=== PATIENT | female | born 1985 | race African-American/Black ===

== ENCOUNTER 2024-09-05 12:44 | Inpatient (IN) | payer OTHER ==
[~2024-09-05] VITALS: Ht 160 cm; Wt 69.4 kg
[2024-09-05] MEDS ORDERED: MORPHINE SULFATE 4 MG/ML INJ (FOR IV/IM USE) IV STA (13:13)
[2024-09-05] MEDS ORDERED: ONDANSETRON HCL 4MG/2ML INJ IV STA (13:13)
[2024-09-05] MEDS: SODIUM CHLORIDE 0.9% 1,000 ML IV ONE (15:15)
[2024-09-05 15:22] LABS: HEMATOCRIT. 41.2 % (36.0-48.0); HEMOGLOBIN. 13.6 g/dL (12.0-16.0); MEAN CORPUSCULAR HEMOGLOBIN 28.6 pg (28.0-32.0); MEAN CORPUSCULAR VOLUME 86.5 fL (81.0-99.0); MEAN PLATELET VOLUME 7.8 fl (7.4-10.4); PLATELET 285 x1000/uL (130-400); RED BLOOD CELL COUNT 4.76 mill/uL (4.2-5.4); WHITE BLOOD COUNT 14.4 x1000/uL (4.5-11.0)
[2024-09-05 15:24] LABS: DIFFERENTIAL COMMENT 1
[2024-09-05 15:30] LABS: CHLORIDE 103 mEq/L (98-107); POTASSIUM 3.9 mEq/L (3.5-5.1); SODIUM 137 mEq/L (136-145)
[2024-09-05 15:31] LABS: CARBON DIOXIDE 23 mEq/L (21-32)
[2024-09-05 15:32] LABS: CALCIUM 9.5 mg/dL (8.7-10.4)
[2024-09-05] MEDS: ONDANSETRON HCL 4MG/2ML INJ IV SCH (15:32)
[2024-09-05 15:36] LABS: CREATININE 0.9 mg/dL (0.6-1.0); GLUCOSE 123 mg/dL (70-105)
[2024-09-05] MEDS: MORPHINE SULFATE 4 MG/ML INJ (FOR IV/IM USE) IV SCH (15:36)
[2024-09-05 15:37] LABS: TROPONIN I HIGH SENSITIVITY 5 ng/L (3.0-34); UREA NITROGEN BLOOD 10 mg/dL (9-23)
[2024-09-05 15:53] LABS: ANISOCYTOSIS 1+; PLATELET ESTIMATE NORMAL
[2024-09-05 15:54] LABS: HCG SCREEN NEGATIVE
[2024-09-05] MEDS: MAGNESIUM 2 G PREMIX 50 ML IV ONE (17:29)
[2024-09-05] MEDS: ONDANSETRON HCL 4MG/2ML INJ IV ONE (17:43)
[2024-09-05] MEDS ORDERED: ACETAMINOPHEN 325MG TABLET PO PRN (18:45)
[2024-09-05] MEDS: SODIUM CHLORIDE 0.9% 1,000 ML IV SCH (18:45)
[2024-09-05] MEDS ORDERED: ZOLPIDEM TARTRATE 5MG TABLET PO PRN (18:45)
[2024-09-05] MEDS ORDERED: CLONIDINE 0.1MG TABLET PO PRN (18:45)
[2024-09-05 20:00] VITALS: BP 149/94; PULSE 85; RESP 19; TEMP 36.7; O2SAT 100
[2024-09-05] MEDS: ENOXAPARIN 40MG/0.4ML SYR SUBCUT SCH (21:00)
[2024-09-05] MEDS: HYDROCODONE/ACETAMINOPHEN 5/325MG TABLET PO PRN (21:07)
[2024-09-05] MEDS: ONDANSETRON HCL 4MG/2ML INJ IV PRN (21:11)
[2024-09-05 22:29] VITALS: BP 149/94; PULSE 85; RESP 18; TEMP 36.8
[2024-09-05 23:26] LABS: CLARITY URINE CLOUDY (CLEAR); COLOR URINE ORANGE (YELLOW); GLUCOSE URINE NEGATIVE (NEGATIVE); KETONES URINE 2+ (NEGATIVE); LEUKOCYTE ESTERASE URINE NEGATIVE (NEGATIVE); NITRITE URINE NEGATIVE (NEGATIVE); OCCULT BLOOD URINE 3+ (NEGATIVE); PH URINE 5.5 (4.5-8.0); PROTEIN URINE 2+ (NEGATIVE); SPECIFIC GRAVITY URINE 1.044 (1.005-1.030); UROBILINOGEN URINE 0.2 E.U./dL (0.2-1.0)
[2024-09-05] MEDS ORDERED: IOHEXOL-350 100 ML BOTTLE ONE (23:42)
[2024-09-05 23:48] LABS: SQUAMOUS EPITHELIAL CELL URINE 1+ /lpf (RARE/1+)
[2024-09-05 23:49] LABS: BACTERIA URINE NONE SEEN; RBC URINE 25-50 /hpf (0-2); WBC URINE 0-2 /hpf (0-2)
[2024-09-05 23:58] LABS: *AMPHETAMINES SCREEN URINE NEGATIVE (NEGATIVE)
[2024-09-05 23:59] LABS: *BARBITURATES SCREEN URINE NEGATIVE (NEGATIVE); *BENZODIAZEPINES SCREEN URINE NEGATIVE (NEGATIVE); *COCAINE SCREEN URINE NEGATIVE (NEGATIVE); CANNABINOID URINE SCREEN NEGATIVE (NEGATIVE); ECSTASY MDMA SCREEN URINE NEGATIVE (NEGATIVE); METHADONE URINE SCREEN NEGATIVE (NEGATIVE); OPIATES URINE SCREEN PRESUMPTIVE POSITIVE (NEGATIVE); PHENCYCLIDINE URINE SCREEN NEGATIVE (NEGATIVE)
[2024-09-06] VITALS: BP 148/99; PULSE 103; RESP 18; TEMP 36.6; O2SAT 100
[2024-09-06] MEDS ORDERED: MAGNESIUM/ALUMINUM HYDROXIDE/SIMETHICONE 30ML UDC PO PRN (01:00)
[2024-09-06] MEDS: PANTOPRAZOLE SODIUM 40 MG/VIAL IV NR (01:03)
[2024-09-06 04:00] VITALS: BP 99/63; PULSE 93; RESP 18; TEMP 36.5; O2SAT 98
[2024-09-06] MEDS ORDERED: SPIR100T5 PO (05:16)
[2024-09-06] MEDS ORDERED: AMLO2.5T45 MT (05:16)
[2024-09-06] MEDS ORDERED: SEMA2.4S (05:16)
[2024-09-06] MEDS ORDERED: ASPI-1497 PO (05:16)
[2024-09-06] MEDS: METOCLOPRAMIDE HCL 10MG/2ML VIAL IV SCH (07:21)
[2024-09-06 08:00] VITALS: BP 137/96; PULSE 98; RESP 18; TEMP 36.7; O2SAT 99
[2024-09-06] MEDS: PANTOPRAZOLE SODIUM 40 MG/VIAL IV SCH (08:46)
[2024-09-06] MEDS: ALPRAZOLAM 0.5 MG TABLET PO PRN (11:33)
[2024-09-06 12:00] VITALS: BP 133/80; PULSE 95; RESP 19; TEMP 36.8; O2SAT 99
[2024-09-06 13:47] LABS: HEMATOCRIT. 40.8 % (36.0-48.0); HEMOGLOBIN. 13.4 g/dL (12.0-16.0); MEAN CORPUSCULAR HEMOGLOBIN 28.2 pg (28.0-32.0); MEAN CORPUSCULAR HGB CONC 32.8 g/dL (31.0-37.0); MEAN CORPUSCULAR VOLUME 86.2 fL (81.0-99.0); MEAN PLATELET VOLUME 7.7 fl (7.4-10.4); PLATELET 247 x1000/uL (130-400); RED BLOOD CELL COUNT 4.74 mill/uL (4.2-5.4); RED CELL DISTRIBUTION WIDTH 15.9 % (11.6-14.6); WHITE BLOOD COUNT 9.6 x1000/uL (4.5-11.0)
[2024-09-06 13:49] LABS: DIFFERENTIAL COMMENT 1
[2024-09-06 13:53] LABS: CALCIUM 8.9 mg/dL (8.7-10.4); CARBON DIOXIDE 24 mEq/L (21-32); CHLORIDE 105 mEq/L (98-107); SODIUM 137 mEq/L (136-145)
[2024-09-06 13:59] LABS: CREATININE 0.8 mg/dL (0.6-1.0); GLUCOSE 101 mg/dL (70-105); UREA NITROGEN BLOOD 9 mg/dL (9-23)
[2024-09-06 14:16] LABS: PLATELET ESTIMATE NORMAL
[2024-09-06 14:17] LABS: ANISOCYTOSIS 1+
[2024-09-06] MEDS ORDERED: ONDA4TAB50 MT (14:52)
[2024-09-06] MEDS ORDERED: PROT40 MT (14:52)
[2024-09-06 15:32] VITALS: BP 150/88; PULSE 95; TEMP 98.2; O2SAT 100
[2024-09-06 16:00] VITALS: BP 150/88; PULSE 84; RESP 19; TEMP 36.7; O2SAT 99
[2024-09-06] MEDS ORDERED: ALPR0.5T MT (16:53)
== END 2024-09-06 17:18 | disposition home or self-care (01) | DRG 641 ==
LOC: ER 12:44 → EDBEDREQTM 18:00 → EDBEDREQ 18:00 → ENRESERV 18:07 → 7EST 18:49
PROVIDERS: ADMIT Internal Medicine; ATTEND Internal Medicine
DX: E83.42 Hypomagnesemia (principal); I10 Essential (primary) hypertension; F41.9 Anxiety disorder, unspecified; R07.89 Other chest pain; Z79.899 Other long term (current) drug therapy
CPT/HCPCS: 36415; 71045; 71275; 76705; 80048; 80305; 81003; 83735; 83880; 84484; 84703; 85025; 93005; 99285; A4606; J2270; J2405; J2470; J2765; J3475; J7030; Q9967